=== PATIENT | female | born 1985 | race Caucasian/White ===

== ENCOUNTER → 2017-04-02 | Outpatient (CLI) | payer SELFPAY ==
[2017-04-02 10:42] LABS: HEMOGLOBIN 13.9 g/dL (12.2-16.2); LYMPH # 1.5 K/mm3 (0.7-4.5); LYMPH % 25.5 % (10-50.0)
[2017-04-02 11:27] LABS: URINE BILIRUBIN - DIPSTICK NEGATIVE (NEG); URINE BLOOD TRACE-INTACT (NEG)
[2017-04-02 11:46] LABS: URINE SQUAMOUS CELLS OCC #/hpf (0-5)
[2017-04-02 12:25] LABS: BUN 10 mg/dL (7-18); GFR (ESTIMATED) 116 ML/MIN (59-)
== END ==
LOC: LAB 10:13
PROVIDERS: Obstetrics & Gynecology
DX: Z30.2 Encounter for sterilization (principal); Z01.812 Encounter for preprocedural laboratory examination

== ENCOUNTER 2017-04-12 08:08 | Day surgery (SDC) | payer SELFPAY ==
[~2017-04-12] VITALS: Ht 162.6 cm; Wt 70.8 kg
--- NOTE | 2017-04-12 12:04 | Operative Note ---
Procedure/Operative Record Date of Procedure: 04/12/17 Pre-op diagnosis: Desire for sterilization Post-op diagnosis: 1. Desire for sterilization. 2. Endometriosis. Procedure performed: Laparoscopic bilateral tubal fulguration Surgeon: Ziyad Fox Anesthesia: HAN Olguin Indications: Desire for sterilization Description of procedure: After the patient was prepped and draped in usual fashion and general anesthesia was Mr., examination under anesthesia revealed a normal-sized anteverted uterus, with no adnexal masses. A weighted speculum was placed within the posterior fourchette of the vagina, and the anterior lip of the cervix was grasped with a single-tooth tenaculum. A HUMI uterine elevator was inserted into the endocervix , and the bulb inflated for easy uterine manipulation during the laparoscopy. After appropriate regloving, the umbilicus was tented up with towel clips. A small incision was made in the base of the umbilicus with a knife, and a Veress needle was inserted into the abdominal cavity. After demonstration of negative pressure, and adequate phisoperitoneum was created with carbon dioxide gas. Veress needle was then replaced with a trocar and cannula, using the [employer] system, and the trocar replaced with a laparoscope. The uterus was of normal size and configuration. Each tube was followed out to its fimbriated end, which appeared free. Each ovary appeared normal. The upper abdomen was explored and found to be normal. Returning to the pelvis, first the RIGHT tube and then the LEFT was grasped in its midsection fulgurated until the tissue blanched. Second and third ruiz were carried out medial to the first on each side. There was no undue bleeding. Endometrial implants were incidentally noted in the cul-de-sac, and a peritoneal pocket defect was observed within the LEFT broad ligament. The phisoperitoneum was then reduced, and the instruments removed under direct visualization. The skin incision was infused with a dilute solution of Marcaine, and closed with subcuticular suture of 3-0 Vicryl, and appropriately dressed. The HUMI was deflated and removed. The sponge and needle counts correct. Estimated blood loss was less than 10 mL. The patient tolerated the procedure well, was taken to PACU in excellent condition. She will be discharged today, if her vital signs are stable. EBL (ml): 10 Complications: None Specimens: None at 1209
--- NOTE | 2017-04-12 12:17 | Anesthesia Record ---
Anesthesia Record Part I Total IV fluids: 500 EBL (ml): 10 Urine Output: 0 Units of blood given: 0 B/P: 114/72 % SaO2: 99 Pulse: 78 Resps: 10 Temp: 97.9 Patient is: Drowsy, Stable Stable to PACU at: 1211 at 1217
--- NOTE | 2017-04-12 12:18 | Anesthesia Record ---
Anesthesia Record Part II Discharge time: 1251 Destination: Same day surgery PACU nurse assessment review? Yes Patient is: Awake, Stable Anesthesia complications? No at 1210
[2017-04-12 15:21] VITALS: BP 116/64
== END 2017-04-12 14:20 | disposition home or self-care (01) ==
LOC: SDC 08:08
PROVIDERS: Obstetrics & Gynecology
PROC: 0U574ZZ Destruction of Bilateral Fallopian Tubes, Percutaneous Endoscopic Approach (ICD-10-PCS; principal; 2017-04-12 11:15)
DX: Z30.2 Encounter for sterilization (principal)